=== PATIENT | male | born 1950 | race Caucasian/White ===

== ENCOUNTER 2024-01-19 11:40 | Inpatient (IN) | payer MEDICARE, SELFPAY ==
--- NOTE | ~2024-01-19 | US_ITS ---
EXAMINATION: RIGHT LOWER EXTREMITY ARTERIAL DUPLEX CLINICAL INFORMATION: Right lower extremity numbness and pain COMPARISON: None available. TECHNIQUE: Duplex Doppler techniques with waveform analysis and measurement of velocities in the common femoral, profunda femoris, superficial femoral, popliteal and tibial arteries were performed. The study was performed only at rest. FINDINGS: NONINVASIVE ASSESSMENT OF THE ARTERIES OF BILATERAL LOWER EXTREMITIES WITH ABIs: RIGHT LOWER EXTREMITY DUPLEX ULTRASOUND: Common femoral artery: 94.4 cm/s. Diastolic flow reversal: Present Profunda femoris artery: 51 cm/s. Diastolic flow reversal: Present Superficial femoral artery (proximal): 125 cm/s. Diastolic flow reversal: Present Superficial femoral artery (mid): 83.9 cm/s. Diastolic flow reversal: Present Superficial femoral artery (distal): 66.5 cm/s. Diastolic flow reversal: Present Proximal popliteal artery: 40.8 cm/s Diastolic flow reversal: Present Distal popliteal artery: 50.6 cm/s Diastolic flow reversal: Present Posterior tibial artery: 74.2 cm/s Diastolic flow reversal: Present Peroneal artery: 36.4 cm/s Diastolic flow reversal: Present US/US arterial duplex LE RT IMPRESSION: Normal multiphasic flow throughout the right lower extremity. No sonographic evidence of right lower extremity arterial disease.
--- NOTE | ~2024-01-19 | XR_ITS ---
EXAMINATION: XR KNEE, RIGHT CLINICAL INFORMATION: Pain COMPARISON: None available. TECHNIQUE: Four views of the right knee. FINDINGS: No acute visible fracture or dislocation. Multi joint arthritic changes. Joint space alignment are maintained. Trace knee joint effusion. Soft tissues are unremarkable. XR/XR knee RT 3V IMPRESSION: 1. No acute visible fracture or dislocation. 2. Multi joint arthritic changes. 3. Trace knee joint effusion.
--- NOTE | ~2024-01-19 | CT_ITS ---
EXAMINATION: CT LUMBAR SPINE WITHOUT CONTRAST CLINICAL INFORMATION: Neck pain. Severe right thigh pain. COMPARISON: None available. TECHNIQUE: Axial images obtained through the lumbar spine. Coronal and sagittal reformatted images are performed at this This CT examination was performed using dose optimization techniques as appropriate, variously including the following: *Automated exposure control *Adjustment of mA and/or kV according to patient size (this includes techniques or standardized protocols for targeted exams where dose is matched to indication/reason for exam; i.e. extremities or head) *Use of iterative reconstruction technique DLP; 386 mGy-cm FINDINGS: No paraspinal soft tissue mass or fluid collection. No focal bone lesion or bone destruction. 1 mm nonobstructive stone mid pole right kidney. No hydroureter. Vascular calcifications of aorta and iliac arteries without aneurysm. Degenerative change at the sacroiliac joints bilateral. There is bony fusion of the left anterior sacroiliac joint. Partial bony fusion of the posterior superior right sacroiliac joint. Disc levels: T12-L1: No focal disc protrusion. No central canal stenosis. Neural foramina open. Facet joints are normal. L1-L2: No focal disc protrusion. No central canal stenosis. Neural foramina open. Facet joints are normal. L2-L3: No focal disc protrusion. No central canal stenosis. Neural foramina open. Facet joints are normal. L3-L4: No focal disc protrusion. There is mild circumferential bulge of the annular fibers of the disc. Ligamentum flavum hypertrophy. Mild degenerative change of facet joints. Moderate central canal stenosis. Neural foramina are open bilaterally. L4-L5: Mild narrowing of the lumbar disc height. Slight circumferential bulge of the annular fibers. Mild ligamentum flavum hypertrophy. Mild to moderate central canal stenosis. Neural foramina remain open bilaterally. Moderate degenerative facet joint arthrosis. L5-S1: Lumbar disc height normal. No focal disc protrusion. No central canal stenosis. Neural foramina remain open. Moderate degenerative change of facet joints bilateral. CT/CT lumbar spine wo IV con IMPRESSION: 1. No acute abnormality. 2. Degenerative spondylosis of lumbar spine. Bulging of the annular fibers at L3-L4 and L4-L5. Moderate central canal stenosis at L3-L4 and mild to moderate central canal stenosis at L4-L5.
--- NOTE | ~2024-01-19 | XR_ITS ---
EXAMINATION: XR PELVIS CLINICAL INFORMATION: rt groin pain COMPARISON: None available. TECHNIQUE: AP view of the pelvis. FINDINGS: No acute fracture. The femoral heads are well seated within the acetabula bilaterally. Mild arthrosis bilaterally with joint space narrowing and subchondral sclerosis. The pelvic rim is intact. No pubic symphysis diastases. Sacroiliac joint spaces are maintained. XR/XR pelvis 1-2V IMPRESSION: 1. No acute fracture or dislocation. 2. Mild bilateral hip arthrosis.
--- NOTE | ~2024-01-19 | US_ITS ---
EXAMINATION: US SCROTUM CLINICAL INFORMATION: Scrotal pain. COMPARISON: None available. TECHNIQUE: A sonogram of the scrotum was performed assessing jackson-scale appearance and color Doppler flow. Spectral Doppler analysis of the arterial and venous flow were performed in the testes bilaterally. FINDINGS: RIGHT: Right testicle measures 4 x 2.5 x 2.7 cm, volume 13.8 mL. No focal testicular parenchymal lesions are visualized. Spectral Doppler analysis of the arterial and venous flow is normal in the right testis. Right epididymal head is normal in size. Small right-sided hydrocele. There is no right-sided varicocele. Right epididymal Doppler flow is normal. LEFT: Left testicle measures 4 x 2.3 x 2.8 cm, volume 15.4 mL. No focal testicular parenchymal lesions are visualized. Spectral Doppler analysis of the arterial and venous flow is normal in the left testis. There is heterogeneous density and mild thickening of the body and tail of the left epididymis. There is increased vascularity on color Doppler. Findings consistent with a left-sided epididymitis. Small left-sided hydrocele. There is no varicocele. US/US scrotum doppler IMPRESSION: 1. Normal right and left testicle. 2. Heterogeneous density and mild thickening of the body and tail of left epididymis with increased vascular flow on color Doppler consistent with epididymitis. 3. Small bilateral hydrocele.
--- NOTE | ~2024-01-19 | US_ITS ---
EXAMINATION: US SCROTUM CLINICAL INFORMATION: Scrotal pain. COMPARISON: None available. TECHNIQUE: A sonogram of the scrotum was performed assessing jackson-scale appearance and color Doppler flow. Spectral Doppler analysis of the arterial and venous flow were performed in the testes bilaterally. FINDINGS: RIGHT: Right testicle measures 4 x 2.5 x 2.7 cm, volume 13.8 mL. No focal testicular parenchymal lesions are visualized. Spectral Doppler analysis of the arterial and venous flow is normal in the right testis. Right epididymal head is normal in size. Small right-sided hydrocele. There is no right-sided varicocele. Right epididymal Doppler flow is normal. LEFT: Left testicle measures 4 x 2.3 x 2.8 cm, volume 15.4 mL. No focal testicular parenchymal lesions are visualized. Spectral Doppler analysis of the arterial and venous flow is normal in the left testis. There is heterogeneous density and mild thickening of the body and tail of the left epididymis. There is increased vascularity on color Doppler. Findings consistent with a left-sided epididymitis. Small left-sided hydrocele. There is no varicocele. US/US scrotum IMPRESSION: 1. Normal right and left testicle. 2. Heterogeneous density and mild thickening of the body and tail of left epididymis with increased vascular flow on color Doppler consistent with epididymitis. 3. Small bilateral hydrocele.
--- NOTE | ~2024-01-19 | XR_ITS ---
EXAMINATION: XR HIP, RIGHT CLINICAL INFORMATION: Pain COMPARISON: None available. TECHNIQUE: AP view the pelvis 2 views of the right hip FINDINGS: No acute visible fracture or dislocation. 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 Degenerative changes of the lumbosacral spine. Joint space alignment are otherwise maintained. Multilevel visualized colon. Soft tissues are unremarkable. XR/XR hip RT w PEL1V IMPRESSION: 1. No acute visible fracture or dislocation. 2. 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 3. Degenerative changes of the lumbosacral spine.
[2024-01-19 12:58] VITALS: BP 157/83; PULSE 74; O2SAT 96
[2024-01-19 13:00] VITALS: BP 173/91; PULSE 86; RESP 18; TEMP 36.6; O2SAT 96; BMI 26.9
--- NOTE | 2024-01-19 13:12 | ED_ITS ---
HPI - General Adult General Chief complaint: Extremity Injury, Lower Stated complaint: LEG PAIN PER EMS Time Seen by Provider: 01/19/24 16:46 Source: patient, family and RN notes reviewed Mode of arrival: wheelchair Limitations: no limitations History of Present Illness ED Provider: Sabrina Haro PA-C HPI narrative: This is a 73-year-old male, with a history of PLS, who presents emergency department complaints of right-sided groin pain x1 week. Patient states he has had no recent injury, however states that he chops wood from his motorized scooter. He does not remember specific move where he pulled his groin however states that he has had worsening right groin pain over the last several days. He states he is unable to extend his leg secondary to the pain. He reports that the pain radiates into his right testicle but no urinary symptoms. No fevers, chills, chest pain, shortness of breath, abdominal pain, nausea, vomiting or diarrhea. No dysuria, hematuria, urinary frequency or urgency. Denies taking any medicines at home to treat his current symptoms. No other complaints or concerns at this time. MD complaint: Right groin pain Onset (ago): week(s) Location: lower extremity Radiation: non-radiation Severity: moderate Quality: aching Pain Consistency: constant Relieving factors: none Exacerbating factors: none Associated symptoms: denies other symptoms Treatments prior to arrival: none Related Data Home Medications ?Medication ?Instructions ?Recorded ?Confirmed clopidogrel 75 mg tablet 75 mg PO DAILY 01/20/24 01/20/24 cyanocobalamin (vitamin B-12) 1,000 mcg PO DAILY 01/20/24 01/20/24 1,000 mcg tablet ezetimibe 10 mg tablet 10 mg PO DAILY 01/20/24 01/20/24 levothyroxine 150 mcg tablet 150 mcg PO MOTUWETHFRSA 01/20/24 01/20/24 metoprolol succinate 25 mg 25 mg PO DAILY 01/20/24 01/20/24 tablet,extended release 24 hr Previous Rx's ?Medication ?Instructions ?Recorded acetaminophen 325 mg tablet 975 mg (3 x 325 mg) PO TIDWM 7 01/24/24 days #63 tabs ibuprofen 400 mg tablet 400 mg PO TIDWM 7 days #21 tabs 01/24/24 levofloxacin 500 mg tablet 500 mg PO Q24H #10 tabs 01/24/24 oxycodone 5 mg tablet 5 mg PO Q6H PRN Pain, Severe (Pain 01/24/24 Scale 7-10) #20 tabs pantoprazole 20 mg tablet,delayed 20 mg PO DAILY #90 tabs 01/24/24 release Allergies Allergy/AdvReac Type Severity Reaction Status Date / Time No Known Allergies Allergy Verified 01/19/24 13:04 Review of Systems 2 Review of Systems: Yes all other systems are reviewed and are negative Constitutional: Constitutional: Reports as per [facility] Past Medical History Medical History Hypothyroidism HLD (hyperlipidemia) Social History Social History Household Members: Spouse Housing: House Do you presently have visiting nurse or other home services: No Comment: Mindy Patient Tobacco Use Status: Never used Tobacco Substance Use Type: Other service: No Physical Exam ED Vital Signs: Vital Signs - 24 hr 01/19/24 13:00 01/19/24 21:38 01/20/24 01:19 Temperature 97.9 F 98.4 F 98.3 F Pulse Rate 86 68 62 Respiratory Rate 18 20 18 Blood Pressure 173/91 H 161/84 H 135/66 Pulse Oximetry 96 93 97 Oxygen Delivery Method Room Air Room Air Room Air 01/20/24 03:48 01/20/24 04:00 01/20/24 05:55 Temperature 98.3 F 97.7 F 98.3 F Pulse Rate 62 61 61 Respiratory Rate 18 16 16 Blood Pressure 135/66 120/72 115/59 L Pulse Oximetry 97 97 Oxygen Delivery Method Room Air Room Air BMI result Body Mass Index 26.9 Const General: cooperative, comfortable and no acute distress Orientation/consciousness: patient oriented x3 Limitations: no limitations [facility] Head: Yes normal to inspection, Yes normocephalic and Yes atraumatic Ears: hearing grossly normal bilaterally General nose exam: Normal external nose present Face and sinus: Yes normal facial exam Mouth: Normal oral and palatal mucosa present, oropharynx normal and moist mucous membranes Throat: Yes posterior oropharynx normal Eyes General: appearance normal, both eyes and all related structures Eyelids: Yes eyelids normal Conjunctivae: conjunctivae normal Sclerae: sclerae normal Pupils: Equal, round and reactive pupils present EOM: EOMs intact bilaterally Neck Neck: Yes normal visual inspection, Yes full ROM and Yes no lymphadenopathy Lymphatic: no lymphadenopathy noted Chest Chest palpation & inspection: normal inspection of the chest Resp Effort & Inspection: normal respiratory effort and able to speak in complete sentences Auscultation: clear to auscultation bilaterally, no crackles, no rales, no rhonchi and no wheezes Cardio Rate: regular rate Rhythm: regular rhythm Heart sounds: S1 normal heart sound present and S2 normal heart sound present GI Inspection: Yes normal to inspection Other: examination performed with RN, Brian Pang present. No testicular erythema, edema, or tenderness. No masses. Skin General skin exam: no rashes or lesions noted Trauma: no lacerations or abrasions Wounds: no wounds Neuro General: patient oriented x3 and moves all extremities Cranial nerves: Yes Equal, round and reactive pupils present Extrem Other: Right lower extremity, no tenderness to palpation along the inner thigh. No palpable masses. No overlying skin changes. Pain with extension of the leg red no calf tenderness. Strong DP pulse noted bilaterally. Extremities are well perfused. General: Yes normal to inspection Right upper extremity: normal to inspection Left upper extremity: normal to inspection Right lower extremity: normal to inspection Left lower extremity: normal to inspection Course Course Course Narrative: This is an RME done by BASSEM Zhu: Additional HPI, ROS, PE not included below will be deferred to primary provider. 73 yo m hx of cad, MIS s/p stents presents w/ R sided groin pain and b/l testicular pain x 1 week. Pain in right groin travels town to right knee. Feels a spasming sensation that comes and goes and is very uncomfortable. No numbness or tingling. No injury. No changes in bowel habits or urination. Not on thinners PE- patient appears uncomfortable TTP to r groin. Unable to walk due to pain Reevaluation(s) Reevaluation #1: Sign out given to my colleague, Cristino Sears, pending CPK, mag, ct lumbar spine, xray hip, knee, and re-eval Reevaluation #2: CP not consistent with rhabdomyolysis. Magnesium within normal range. CT of the lumbar spine revealing degenerative spondylosis and moderate central stenosis as per impression below. Patient is updated on these findings. Reports a history of intermittent urinary incontinence over the past 3-4 years. He denies any rinsed since incontinence over the past month. Having normal bowel movements. He is without urinary symptoms, no dysuria, hematuria, or inability to urinate. Scrotal ultrasound does have findings revealing a left epididymitis and small bilateral hydroceles, urinalysis is without evidence of infection, patient received Levaquin 500 mg treatment. Concern at this time that pain to the right leg and groin is radiculopathy versus muscular pain. He had some in improvement in the muscle tension to the right thigh after receiving Valium, being able to relax the leg. However, his pain is unchanged and continues to report 10/10 pain. He is hesitant to taking IV pain medications as he has been sensitive to narcotics in the past. He is amenable to taking oral oxycodone. He states at baseline he is typically highly functional with use of wheelchair/motorized scooter, but he is also typically ambulatory in his home with use of a walker but has been unable to walk over the past 2 days due to his pain. CT/CT lumbar spine wo IV con IMPRESSION: 1. No acute abnormality. 2. Degenerative spondylosis of lumbar spine. Bulging of the annular fibers at L3-L4 and L4-L5. Moderate central canal stenosis at L3-L4 and mild to moderate central canal stenosis at L4-L5. XR/XR knee RT 3V IMPRESSION: 1. No acute visible fracture or dislocation. 2. Multi joint arthritic changes. 3. Trace knee joint effusion. US/US scrotum IMPRESSION: 1. Normal right and left testicle. 2. Heterogeneous density and mild thickening of the body and tail of left epididymis with increased vascular flow on color Doppler consistent with epididymitis. 3. Small bilateral hydrocele. Reevaluation #3: After receiving oxycodone he reports only mild improvement to pain 9/10. Reports he is unable to move on the stretcher due to his pain, does not feel well enough to return home. Discussed with patient he will need to consider IV analgesics at this time, pain for further management. Patient signed out to Dr. Villarreal pending pain management and re-evaluation. Time: 01:30 Medications Administered Discontinued Medications Generic Name Dose Route Start Last Admin Trade Name Mellisa PRN Reason Stop Dose Admin Acetaminophen 975 mg 01/20/24 12:00 01/24/24 11:42 Acetaminophen 325 Mg Tablet PO 975 mg TIDWM BRENDA Administration Cyclobenzaprine HCl 5 mg 01/20/24 11:30 01/24/24 07:19 Cyclobenzaprine Hcl 5 Mg Tablet PO 5 mg TID BRENDA Administration Diazepam 2.5 mg 01/19/24 19:08 01/19/24 19:40 Diazepam 10 Mg/2 Ml Cartridge IVPUSH 01/19/24 19:09 2.5 mg STAT ONE Administration Enoxaparin Sodium 40 mg 01/20/24 09:45 01/24/24 10:35 Enoxaparin Sodium 40 Mg/0.4 Ml Syringe SUBCUT Not Given Q24H BRENDA Hydromorphone HCl 0.5 mg 01/20/24 06:06 01/20/24 06:36 Hydromorphone Hcl 0.5 Mg/0.5 Ml Syringe IVPUSH 01/20/24 06:07 0.5 mg ONCE ONE Administration Protocol Levofloxacin 500 mg in 100 mls @ 100 mls/hr 01/20/24 22:45 01/22/24 00:57 Levaquin IV Infused Q24H [facility] Infusion Ibuprofen 400 mg 01/20/24 12:00 01/24/24 11:42 Ibuprofen 400 Mg Tablet PO 400 mg TIDWM [facility] Administration Ketorolac Tromethamine 15 mg 01/20/24 09:43 01/20/24 10:23 Ketorolac Tromethamine 30 Mg/Ml Vial IVPUSH 01/20/24 09:44 15 mg ONCE ONE Administration Lactulose 20 gm 01/22/24 09:15 01/24/24 07:20 Lactulose 20 Gm/30 Ml Solution PO Not Given TID BRENDA Levofloxacin 500 mg 01/20/24 01:46 01/20/24 02:29 Levofloxacin 500 Mg Tablet PO 01/20/24 01:47 500 mg ONCE ONE Administration Levofloxacin 500 mg 01/22/24 21:00 01/23/24 19:45 Levofloxacin 500 Mg Tablet PO 500 mg Q24H BRENDA Administration Levothyroxine Sodium 150 mcg 01/24/24 09:58 01/24/24 10:26 Levothyroxine Sodium 150 Mcg Tablet PO 01/24/24 09:59 150 mcg ONCE ONE Administration Morphine Sulfate 4 mg 01/20/24 01:42 01/20/24 02:29 Morphine Sulfate 4 Mg/Ml Cartridge IVPUSH 01/20/24 01:43 4 mg ONCE ONE Administration Protocol Morphine Sulfate 2 mg 01/20/24 09:46 01/21/24 05:57 Morphine Sulfate 4 Mg/Ml Cartridge IVPUSH 2 mg Q4H PRN Administration Pain, Severe (Pain Scale 7-10) Protocol Ondansetron HCl 4 mg 01/20/24 01:42 01/20/24 02:29 Ondansetron Hcl 4 Mg/2 Ml Vial IVPUSH 01/20/24 01:43 4 mg ONCE ONE Administration Oxycodone HCl 5 mg 01/19/24 23:12 01/20/24 00:00 Oxycodone Hcl Immed Release 5 Mg Tablet PO 01/19/24 23:13 5 mg ONCE ONE Administration Oxycodone HCl 5 mg 01/23/24 08:05 01/23/24 13:57 Oxycodone Hcl Immed Release 5 Mg Tablet PO 5 mg Q6H PRN Administration Pain, Severe (Pain Scale 7-10) Sodium Chloride 3 ml 01/20/24 16:00 01/24/24 07:19 0.9 % Sodium Chloride Flush 3 Ml Syringe IVFLUSH 3 ml QSHIFT BRENDA Administration Medical Decision Making Medical Decision Making [facility] Narrative: This is a 73-year-old male, with a history of PLS, who presents to the emergency department with complaints of right inner leg pain and spasmx1 week worsening today. On arrival, patient with right legs secondary to spasm, blood pressure 173/91 other vitals within normal limits patient has no tenderness palpation however pain with extend of the right leg. Leg is well perfused. examination performed without any abnormalities present. Labs were obtained, no leukocytosis, stable H&H, chemistry nondiagnostic. Scrotal ultrasound and lower extremity arterial ultrasound also obtained, no abnormality seen however is evidence of epididymitis seen. I believe that is less likely and not the source of his pain. Discussed workup with attending, Dr. Jung, who recommends lumbar spine CT, knee x-ray, and hip x-ray. Will medicate with Valium 2.5 mg IV. At 06:00. Patient continued to have pain despite IV pain medication. Additional Dilaudid ordered. Patient had extensive worked up, multiple dose of medication. Been monitored in the emergency department for multiple hours. Will admit for pain control. In stable condition. Differential Diagnosis Differential Diagnoses: The differential diagnosis associated with the presentation includes PVD, ischemic limb-unlikely, to light derangement, sciatica, muscle spasm, Admission/Observation Consideration of admission/observation: Escalation of care including admission/observation considered Lab Data MDM Lab Attestation statement: I reviewed the patient's lab results. No leukocytosis, stable H&H, chemistry nondiagnostic 01/19/24 13:28 01/21/24 05:45 Labs: Lab Results 01/19/24 01/19/24 01/21/24 Range/Units 13:28 21:57 05:45 WBC 8.7 (4.8-10.8) X10*3/uL RBC 5.21 (4.60-5.80) X10*6/uL Hgb 16.4 (14.0-18.0) g/dl Hct 49.8 (42.0-52.0) % MCV 95.6 (80.0-98.0) fL MCH 31.5 (27.0-33.0) pg MCHC 32.9 (31.0-36.0) g/dl RDW 13.3 (11.0-16.0) % Plt Count 212 (160-400) X10*3/uL MPV 10.7 (9.4-12.4) fL Immature Gran % (Auto) 0.5 H (0.0-0.4) % Neut % (Auto) 78.0 H (45-73) % Lymph % (Auto) 15.2 L (20-40) % [place] % (Auto) 5.4 (2-11) % Eos % (Auto) 0.6 (0-4) % Baso % (Auto) 0.3 (0-2) % Lymph # (Auto) 1.3 (1.2-4.9) X10*3/uL [place] # (Auto) 0.5 (0.1-1.2) X10*3/uL Eos # (Auto) 0.1 (0.0-0.4) X10*3/uL Baso # (Auto) 0.0 (0.0-0.2) X10*3/uL Abs Immat Gran (auto) 0.04 H (0.00-0.03) X10*3/uL Absolute Neuts (auto) 6.8 (2.0-8.3) x10*3/uL Absolute Nucleated RBC 0.000 (0.0-0.012) X10*3/uL Nucleated RBC % (auto) 0.0 (0.0-0.2) /100WBC Hold Purple Top SEE NOTE PT 11.3 (11.1-13.3) SEC INR 0.9 (0.9-1.1) Sodium 142 141 (135-145) mmol/L Potassium 4.3 4.2 (3.3-5.1) mmol/L Chloride 109 H 109 H (96-108) mmol/L Carbon Dioxide 24 25 (22-29) mmol/L Anion Gap 13 11 L (12-20) BUN 14 16 (9-16) mg/dL Creatinine 1.08 1.11 (0.5-1.4) mg/dL Estim Creat Clear Calc 62.7 61.0 Estimated GFR > 60 > 60 Random Glucose 100 87 (60-115) mg/dL Calcium 9.5 9.1 (8.4-10.2) mg/dL Magnesium 2.1 (1.6-2.6) mg/dL Total Bilirubin 0.6 (0.0-1.0) mg/dL AST 17 (5-37) U/L ALT 17 (0-40) U/L Alkaline Phosphatase 68 (39-117) U/L Total Creatine Kinase 191 H (38-174) U/L Total Protein 7.4 (6.5-8.0) g/dL Albumin 4.4 (3.5-5.0) g/dL Urine Color Dark Yellow Urine Appearance Clear Urine pH 5.0 (5.0-9.0) Ur Specific [place] >= 1.030 H (1.005-1.025) Urine Protein Negative (Neg-Trace) mg/dL Urine Glucose (UA) Negative (Negative) mg/dL Urine Ketones Negative (Negative) mg/dL Urine Blood Negative (Negative) Urine Nitrite Negative (Negative) Ur Leukocyte Esterase Trace H (Negative) Urine RBC 0-2 (0-2) /HPF Urine WBC 6-10 H (0-5) /HPF Ur Squamous Epith Cells 0-2 (0-2) /HPF Urine Bacteria None Seen (None Seen) Hyaline Casts 0-2 (0-2) /LPF Radiology Impression Discussion of test interpretation with radiology: I have reviewed the radiologist's reading. Radiologist Impression: EXAMINATION: US SCROTUM CLINICAL INFORMATION: Scrotal pain. COMPARISON: None available. TECHNIQUE: A sonogram of the scrotum was performed assessing jackson-scale appearance and color Doppler flow. Spectral Doppler analysis of the arterial and venous flow were performed in the testes bilaterally. FINDINGS: RIGHT: Right testicle measures 4 x 2.5 x 2.7 cm, volume 13.8 mL. No focal testicular parenchymal lesions are visualized. Spectral Doppler analysis of the arterial and venous flow is normal in the right testis. Right epididymal head is normal in size. Small right-sided hydrocele. There is no right-sided varicocele. Right epididymal Doppler flow is normal. LEFT: Left testicle measures 4 x 2.3 x 2.8 cm, volume 15.4 mL. No focal testicular parenchymal lesions are visualized. Spectral Doppler analysis of the arterial and venous flow is normal in the left testis. There is heterogeneous density and mild thickening of the body and tail of the left epididymis. There is increased vascularity on color Doppler. Findings consistent with a left-sided epididymitis. Small left-sided hydrocele. There is no varicocele. US/US scrotum doppler IMPRESSION: 1. Normal right and left testicle. 2. Heterogeneous density and mild thickening of the body and tail of left epididymis with increased vascular flow on color Doppler consistent with epididymitis. 3. Small bilateral hydrocele. Dictated By: Harley Dong MD US/US arterial duplex LE RT IMPRESSION: Normal multiphasic flow throughout the right lower extremity. No sonographic evidence of right lower extremity arterial disease. Dictated By: Jerome Steven MD Discharge Plan Discharge Clinical Impression: Leg pain, right Patient Disposition: Admitted As Inpatient Interventions: Admission Worksheet (ED) Last Done: 01/20/24 15:28 Discharge Date/Time: 01/20/24 16:52
[2024-01-19 13:32] LABS: MANUAL DIFF FLAG NO
[2024-01-19 13:33] LABS: Basophils Percent Auto 0.3 % (0-2); Eosinophils Absolute Auto 0.1 X10*3/uL (0.0-0.4); Eosinophils Percent Auto 0.6 % (0-4); Hematocrit 49.8 % (42.0-52.0); Hemoglobin 16.4 g/dl (14.0-18.0); Imm Gran Abs Auto 0.04 X10*3/uL (0.00-0.03); Imm Gran Pct Auto 0.5 % (0.0-0.4); Lymphocytes Absolute Auto 1.3 X10*3/uL (1.2-4.9); Lymphocytes Percent Auto 15.2 % (20-40); Mean Corpuscular HGB Conc 32.9 g/dl (31.0-36.0); Mean Corpuscular Hemoglobin 31.5 pg (27.0-33.0); Mean Corpuscular Volume 95.6 fL (80.0-98.0); Mean Platelet Volume 10.7 fL (9.4-12.4); Monocytes Absolute Auto 0.5 X10*3/uL (0.1-1.2); Monocytes Percent Auto 5.4 % (2-11); Neutrophils Absolute Auto 6.8 x10*3/uL (2.0-8.3); Platelet Count 212 X10*3/uL (160-400); Red Blood Count 5.21 X10*6/uL (4.60-5.80); Red Cell Distribution Width 13.3 % (11.0-16.0); White Blood Count 8.7 X10*3/uL (4.8-10.8)
[2024-01-19 13:41] LABS: INTERNATIONAL NORM RATIO 0.9 (0.9-1.1); Prothrombin Time 11.3 SEC (11.1-13.3)
[2024-01-19 13:47] LABS: Alanine Aminotransferase 17 U/L (0-40); Albumin Level 4.4 g/dL (3.5-5.0); Alkaline Phosphatase 68 U/L (39-117); Anion Gap 13 (12-20); Aspartate Amino Transferase 17 U/L (5-37); Bilirubin Total 0.6 mg/dL (0.0-1.0); Blood Urea Nitrogen 14 mg/dL (9-16); Calcium 9.5 mg/dL (8.4-10.2); Carbon Dioxide 24 mmol/L (22-29); Chloride 109 mmol/L (96-108); Creatinine Clr Calc Pharmacy 62.7; Estimated Glomerular Filt Rate > 60; Glucose Random 100 mg/dL (60-115); Potassium 4.3 mmol/L (3.3-5.1); Sodium 142 mmol/L (135-145); Total Protein 7.4 g/dL (6.5-8.0)
--- OUTSIDE RECORDS SUMMARY | 2024-01-19 16:39 | XMS_ITS | Patient Health Record ---
Author Organization [facility] Address [address] [place] [address] Care Team Providers Care Sulky Driver Name Role Phone Ulises Cedeño MD Primary Care Provider Unavail able Obi Barboza Unavailable [phone] REASON FOR REFERRAL No Information MEDICATIONS Medication SIG (Take, Route, Fr equency, Duration) Notes Start Date End Date Status MoviPrep 100 GM as directed Orally 1 for 1 dose Active Aspir-81 81mg Active Thyroid 0.15 08/22/2023 08/22/2023 Activ e Lopressor 25mg 08/22/2023 08/22/2023 Act marsha SOCIAL HISTORY Sex Assigned At : Social History Observation Description Sex Assigned At Unknown PROBLEMS Problem Type ICD Code Onset Dates Problem Status W/U Status Risk SNOMED Code Notes Problem Acid reflux (530.81) Active confirmed Acid reflux (332866504) Problem Colon cancer screening (V76.51) Active confirmed Colon cancer screening (742174587) PLAN OF TREATMENT Future Test Test Name Order Date COLONOSCOPY 03/02/2012 Insurance Providers Payer Name Payer Address Payer Phone Subscriber Number Group Number Insured Name Patient Relationship to Insured Coverage Start Date [place]age End [place] [facility] [place] [employer] [address] [place] [address] [id number] MAGGIE MCADAMS Self - patient is the insured MEDICAL (GENERAL) HISTORY Medical History History ICD Code Denies [place],DM,CVA,Lung disease,renal dise ase CAD-stent in 2002-no cardiac problems si nce ? 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
[2024-01-19] MEDS: diazePAM 10 MG/2 ML CARTRIDGE 2.5 MG IVPUSH (19:40)
[2024-01-19 19:42] LABS: Magnesium 2.1 mg/dL (1.6-2.6)
[2024-01-19 21:38] VITALS: BP 161/84; PULSE 68; RESP 20; TEMP 36.9; O2SAT 93
[2024-01-19 22:22] LABS: Appearance Urine Clear; Color Urine Dark Yellow; Glucose Urine UA Negative (Negative); Leukocyte Esterase Urine Trace (Negative); Nitrite Urine Negative (Negative); Specific Gravity - Urine >= 1.030 (1.005-1.025); UMIC TRIGGER UACC YES; Urine Blood Negative (Negative); Urine Ketones Negative (Negative); Urine Protein Negative (Neg-Trace)
[2024-01-19 22:32] LABS: Bacteria Urine None Seen (None Seen); Hyaline Casts Urine 0-2 /LPF (0-2); RBC Urine 0-2 /HPF (0-2); Squamous Epithelial Cell Urine 0-2 /HPF (0-2); UACC Culture Trigger YES
[2024-01-20] VITALS (10 sets, daily range): BP systolic 109–155; BP diastolic 59–86; PULSE 61–78; RESP 14–19; TEMP 36.3–36.8; O2SAT 92–97
[2024-01-20] MEDS: oxyCODONE HCl Immed Release 5 MG TABLET PO
[2024-01-20] MEDS: ondansetron HCL 4 MG/2 ML VIAL IVPUSH (02:29)
[2024-01-20] MEDS: Morphine Sulfate 4 MG/ML CARTRIDGE IVPUSH (02:29)
[2024-01-20] MEDS: levoFLOXacin 500 MG TABLET PO (02:29)
[2024-01-20] MEDS: HYDROmorphone HCl 0.5 MG/0.5 ML SYRINGE IVPUSH (06:36)
--- NOTE | 2024-01-20 08:19 | PC.NURSE ---
Pt states pain 2/10 to dorsal right foot. Area appears red, no warmth noted to area. +CMS. No reports of groin or testicular pain at this time. Pt is alert/oriented. Awaiting hospitalist for consult for ?admission. Visitor at bedside
--- NOTE | 2024-01-20 09:47 | P.HPHOSP_ITS ---
History of Present Illness Date of Service: 01/20/24 Chief Complaint: intractable pain, UTI, Epididimytis A 73 years old male with PMH of Hypothyroid, HLD, HTN who presents to ED with 1 week of right sided groin and thigh pain. He denies fever, chills, injury. He reports last week that he chopped wood by the motorized scooter with lots of vibration. the pain is persistent and getting worse interfering with his daily activities as he can not walk safely anymore. The pain radiates to his testicles but no pain or swelling in his scrotum. . No chest pain, palpitations, SOB, nausea, vomiting, diarrhea or urinary symptoms. In ED US scrotum was concerning for possible left sided Epididymitis. received multiple doses of IV and PO pain medications with no relief. Will be admitted for further work up and treatment. Review of Systems 2 Review of Systems: No fever, chills or weakness No chest pain, palpitation No shortness of breath or coughing No abdominal pain, nausea or vomiting No urinary symptoms No any rash or wounds Right inner thigh pain PMFSH Medical History Hypothyroidism HLD (hyperlipidemia) Social History Smoked in Last 30 Days: No Advance Directives: No Advance Directives Information Provided: Yes Do you have a plan to hurt others: No Plan Meds Allergies Allergy/AdvReac Type Severity Reaction Status Date / Time No Known Allergies Allergy Verified 01/19/24 13:04 Active Medications: Current Medications Acetaminophen (Acetaminophen 325 Mg Tablet) 975 mg PO TIDWM [facility] Levofloxacin (Levaquin) 500 mg in 100 mls @ 100 mls/hr IV Q24H [facility] Ibuprofen (Ibuprofen 400 Mg Tablet) 400 mg PO TIDWM [facility] Ketorolac Tromethamine (Ketorolac Tromethamine 30 Mg/Ml Vial) 15 mg IVPUSH ONCE ONE Stop: 01/20/24 09:44 Home Medications ?Medication ?Instructions ?Recorded ?Confirmed ?Last Taken ?Type clopidogrel 75 mg tablet 75 mg PO DAILY 01/20/24 01/20/24 01/17/24 History cyanocobalamin (vitamin B-12) 1,000 mcg PO DAILY 01/20/24 01/20/24 01/17/24 History 1,000 mcg tablet ezetimibe 10 mg tablet 10 mg PO DAILY 01/20/24 01/20/24 01/17/24 History levothyroxine 150 mcg tablet 150 mcg PO MOTUWETHFRSA 01/20/24 01/20/24 01/17/24 History metoprolol succinate 25 mg 25 mg PO DAILY 01/20/24 01/20/24 01/17/24 History tablet,extended release 24 hr Physical Exam 2 Vital Signs and Narrative: Vital Signs: Last Vital Signs Temp 97.4 F 01/20/24 07:28 Pulse 74 01/20/24 07:28 Resp 14 01/20/24 07:28 BP 109/60 01/20/24 07:28 Pulse Ox 92 01/20/24 07:28 O2 Del Method Room Air 01/20/24 07:28 BMI result Body Mass Index 26.9 Const: Other: Constitutional : Awake, interactive, in distress for pain Cardiovascular : RRR, no JVP, no lower extremity edema Respiratory : good bilateral air entry, no crackles Gastrointestinal: soft, lax, Normal bowel sounds Skin : Warm, Dry Extremities: Right inner thigh mild tenderness Urinary: No erythema, warmth, swelling or tenderness upon palpation Neurological : Alert & oriented x3, No focal deficit Results Labs 01/19/24 13:28 01/19/24 13:28 Labs: Laboratory Results - last 24 hr 01/19/24 01/19/24 13:28 21:57 MCV 95.6 MCH 31.5 MCHC 32.9 RDW 13.3 Plt Count 212 MPV 10.7 Immature Gran % (Auto) 0.5 H Neut % (Auto) 78.0 H Lymph % (Auto) 15.2 L Sherman % (Auto) 5.4 Eos % (Auto) 0.6 Baso % (Auto) 0.3 Lymph # (Auto) 1.3 Sherman # (Auto) 0.5 Eos # (Auto) 0.1 Baso # (Auto) 0.0 Abs Immat Gran (auto) 0.04 H Absolute Neuts (auto) 6.8 Absolute Nucleated RBC 0.000 Nucleated RBC % (auto) 0.0 PT 11.3 INR 0.9 Anion Gap 13 Estim Creat Clear Calc 62.7 Estimated GFR > 60 Random Glucose 100 Calcium 9.5 Magnesium 2.1 Total Bilirubin 0.6 AST 17 ALT 17 Alkaline Phosphatase 68 Total Creatine Kinase 191 H Total Protein 7.4 Albumin 4.4 Urine Color Dark Yellow Urine Appearance Clear Urine pH 5.0 Ur Specific Chloride >= 1.030 H Urine Protein Negative Urine Glucose (UA) Negative Urine Ketones Negative Urine Blood Negative Urine Nitrite Negative Ur Leukocyte Esterase Trace H Urine RBC 0-2 Urine WBC 6-10 H Ur Squamous Epith Cells 0-2 Urine Bacteria None Seen Hyaline Casts 0-2 Imaging Radiologist's Impressions: Impressions Duplex Scan Lower Extremity Artery 01/19/24 14:11 IMPRESSION: Normal multiphasic flow throughout the right lower extremity. No sonographic evidence of right lower extremity arterial disease. Scrotum Ultrasound 01/19/24 14:24 IMPRESSION: 1. Normal right and left testicle. 2. Heterogeneous density and mild thickening of the body and tail of left epididymis with increased vascular flow on color Doppler consistent with epididymitis. 3. Small bilateral hydrocele. Scrotum Ultrasound 01/19/24 14:24 IMPRESSION: 1. Normal right and left testicle. 2. Heterogeneous density and mild thickening of the body and tail of left epididymis with increased vascular flow on color Doppler consistent with epididymitis. 3. Small bilateral hydrocele. Lumbar Spine CT 01/19/24 18:03 IMPRESSION: 1. No acute abnormality. 2. Degenerative spondylosis of lumbar spine. Bulging of the annular fibers at L3-L4 and L4-L5. Moderate central canal stenosis at L3-L4 and mild to moderate central canal stenosis at L4-L5. Hip/Pelvis X-Ray 01/19/24 18:20 IMPRESSION: 1. No acute visible fracture or dislocation. 2. 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 3. Degenerative changes of the lumbosacral spine. Knee X-Ray 01/19/24 18:20 IMPRESSION: 1. No acute visible fracture or dislocation. 2. Multi joint arthritic changes. 3. Trace knee joint effusion. Assessment and Plan (1) HLD (hyperlipidemia): Status: Inactive (2) Hypothyroidism: Status: Inactive Plan A 73 years old male with PMH of Hypothyroid, HLD, HTN who presents to ED with 1 week of right sided groin and thigh pain. He denies fever, chills, injury. Acute left thigh\groin pain could be referred pain from testicles , hip joint US scrotum showing epididymitis Treated with IV Levaquin for now ATC Tylenol and Ibuprofen To do PT consider neurology eval if progressive Pending cultures Hx CAD? Plavix, Metoprolol and Ezetimibe Hypothyroidism continue Levothyroxine DVT PPx Lovenox Quality Stroke Does the patient have a stroke diagnosis?: No VTE Prior VTE?: No VTE Risk Level:: Medical - moderate - high VTE Device Contraindication: Treatment Not Indicated VTE Drug Contraindication: N/A - Med Ordered
--- NOTE | 2024-01-20 09:49 | PHA.MEDREC ---
Pharmacy Consult ? Medication Reconciliation Pharmacy has completed the medication reconciliation. spoke with patient to confirm medications. He reports he skips sundays for this levothyroxine. He reports he last took all of his medications on Tuesday.
[2024-01-20] MEDS: Ketorolac Tromethamine 30 MG/ML VIAL 15 MG IVPUSH (10:23)
[2024-01-20] MEDS: Enoxaparin Sodium 40 MG/0.4 ML SYRINGE SUBCUT (10:24)
--- NOTE | 2024-01-20 10:28 | PC.NURSE ---
Physical therapy at bedside at this time, will be moved on hospital bed. Update provided to daughter Medicated as charted
[2024-01-20] MEDS: Ibuprofen 400 MG TABLET PO ×2 (11:46→16:40)
[2024-01-20] MEDS: Cyclobenzaprine HCl 5 MG TABLET PO ×3 (11:46→20:09)
[2024-01-20] MEDS: Acetaminophen 325 MG TABLET 975 MG PO ×2 (11:47→16:39)
[2024-01-20] MEDS: 0.9 % Sodium Chloride Flush 3 ML SYRINGE IVFLUSH (15:25)
[2024-01-20] MEDS: Morphine Sulfate 4 MG/ML CARTRIDGE 2 MG IVPUSH (20:13)
[2024-01-21] VITALS: BP 130/87; PULSE 74; RESP 15; TEMP 36.6; O2SAT 97
[2024-01-21] MEDS: levoFLOXacin/D5W 500 MG/100 ML PIGGYBACK 100 MG IV ×2 (00:11→22:54)
[2024-01-21] MEDS: Morphine Sulfate 4 MG/ML CARTRIDGE 2 MG IVPUSH ×2 (00:16→05:57)
[2024-01-21 06:16] VITALS: BP 132/88; PULSE 72; RESP 17; TEMP 36.6; O2SAT 95
[2024-01-21 07:29] LABS: Anion Gap 11 (12-20); Blood Urea Nitrogen 16 mg/dL (9-16); Calcium 9.1 mg/dL (8.4-10.2); Carbon Dioxide 25 mmol/L (22-29); Chloride 109 mmol/L (96-108); Estimated Glomerular Filt Rate > 60; Glucose Random 87 mg/dL (60-115); Potassium 4.2 mmol/L (3.3-5.1); Sodium 141 mmol/L (135-145)
[2024-01-21] MEDS: 0.9 % Sodium Chloride Flush 3 ML SYRINGE IVFLUSH ×3 (07:35→22:54)
[2024-01-21] MEDS: Cyclobenzaprine HCl 5 MG TABLET PO ×3 (07:37→20:31)
[2024-01-21] MEDS: Ibuprofen 400 MG TABLET PO ×3 (07:38→17:29)
[2024-01-21] MEDS: Acetaminophen 325 MG TABLET 975 MG PO ×3 (07:38→17:30)
[2024-01-21] MEDS: Enoxaparin Sodium 40 MG/0.4 ML SYRINGE SUBCUT (07:39)
[2024-01-21 07:42] VITALS: BP 139/79; PULSE 68; RESP 18; TEMP 36.1; O2SAT 96
--- NOTE | 2024-01-21 10:35 | HO.PM.IMPN ---
Subjective Subjective Date of Service: 01/21/24 Interval History: feels much better already still reporting pain in groin and mid thigh pending cultures and PT eval Review of Systems Review of Systems: Yes all other systems are reviewed and are negative Physical Exam Vital Signs: Vital Signs: Last Vital Signs Temp 96.9 F 01/21/24 07:42 Pulse 68 01/21/24 07:42 Resp 18 01/21/24 07:42 BP 139/79 01/21/24 07:42 Pulse Ox 96 01/21/24 07:42 O2 Del Method Room Air 01/21/24 07:42 BMI result Body Mass Index 26.9 Const: Other: Constitutional : Awake, interactive, in distress for pain Cardiovascular : RRR, no JVP, no lower extremity edema Respiratory : good bilateral air entry, no crackles Gastrointestinal: soft, lax, Normal bowel sounds Skin : Warm, Dry Extremities: Right inner thigh mild tenderness Urinary: No erythema, warmth, swelling or tenderness upon palpation Neurological : Alert & oriented x3, No focal deficit Objective Data Active Medications Acetaminophen (Acetaminophen 325 Mg Tablet) 975 mg PO TIDWM [facility] Last Admin: 01/21/24 07:38 Dose: 975 mg Documented By: WILLIAM Acetaminophen (Acetaminophen 325 Mg Tablet) 650 mg PO Q6H PRN PRN Reason: Pain, Mild (Pain Scale 1-3) Al Hydroxide/Mg Hydroxide (Magnesium Hydrox/Alum Hydrox 30 Ml Oral.Susp) 30 ml PO Q4H PRN PRN Reason: Heartburn/Nausea Cyclobenzaprine HCl (Cyclobenzaprine Hcl 5 Mg Tablet) 5 mg PO TID [facility] Last Admin: 01/21/24 07:37 Dose: 5 mg Documented By: WILLIAM Enoxaparin Sodium (Enoxaparin Sodium 40 Mg/0.4 Ml Syringe) 40 mg SUBCUT Q24H [facility] Last Admin: 01/21/24 07:39 Dose: 40 mg Documented By: WILLIAM Levofloxacin (Levaquin) 500 mg in 100 mls @ 100 mls/hr IV Q24H [facility] Last Infusion: 01/21/24 01:17 Dose: Infused Documented By: KIRT Ibuprofen (Ibuprofen 400 Mg Tablet) 400 mg PO TIDWM [facility] Last Admin: 01/21/24 07:38 Dose: 400 mg Documented By: WILLIAM Morphine Sulfate (Morphine Sulfate 4 Mg/Ml Cartridge) 2 mg IVPUSH Q4H PRN; Protocol PRN Reason: Pain, Severe (Pain Scale 7-10) Last Admin: 01/21/24 05:57 Dose: 2 mg Documented By: KIRT Ondansetron HCl (Ondansetron Hcl 4 Mg/2 Ml Vial) 4 mg IVPUSH Q8H PRN PRN Reason: Nausea and Vomiting Sodium Chloride (0.9 % Sodium Chloride Flush 3 Ml Syringe) 3 ml IVFLUSH QSHIFT [facility] Last Admin: 01/21/24 07:35 Dose: 3 ml Documented By: WILLIAM Labs 01/19/24 13:28 01/21/24 05:45 Labs: Laboratory Results - last 24 hr 01/21/24 05:45 Hold Purple Top SEE NOTE Anion Gap 11 L Estim Creat Clear Calc 61.0 Estimated GFR > 60 Random Glucose 87 Calcium 9.1 Microbiology Microbiology Results: Microbiology 01/19/24 Unknown Urine Culture - Preliminary Urine clean catch - Urine jackson top No growth to date. Assessment and Plan (1) Epididymitis, left: Status: Acute (2) Leg pain, right: Status: Acute (3) Physical deconditioning: Status: Acute Plan A 73 years old male with PMH of Hypothyroid, HLD, HTN who presents to ED with 1 week of right sided groin and thigh pain. He denies fever, chills, injury. Acute left thigh\groin pain 2/2 acute Epididymitis could be referred pain from testicles , hip joint osteoarthritis US scrotum showing epididymitis Pending cultures IV Levaquin for now ATC Tylenol and Ibuprofen Morphine PRN for pain Physical deconditioning PT rec acute rehab, to continue to follow. Hx CAD? Plavix, Metoprolol and Ezetimibe Hypothyroidism continue Levothyroxine DVT PPx Lovenox The patient needs overnight hospital stay for IV pain medication as his pain is not well controlled. He will likely need placement at SNF\acute rehab per PT recommendations. pending final cultures and antibiotics sensitivity. Quality Stroke Does the patient have a stroke diagnosis?: No VTE Prior VTE?: No VTE Risk Level:: Medical - moderate - high VTE Device Contraindication: Treatment Not Indicated VTE Drug Contraindication: N/A - Med Ordered
--- NOTE | 2024-01-21 10:44 | MHC.CM.PN ---
PT REPORTS HE LIVES WITH HIS AND DAUGHTER WHO CAN ASSIST PRN HE REPORTS HE USES A WALKER HE SAYS HE HAS THE PAPERWORK AND WILL COMPLETE A HCP PCP: [facility] NOTICE DELIVERED DCP: HOME VIA PRIVATE TRANSPORT
[2024-01-21 15:02] VITALS: BP 146/82; PULSE 68; RESP 18; TEMP 36.6; O2SAT 96
[2024-01-21 23:05] VITALS: BP 155/75; PULSE 72; RESP 18; TEMP 36.7; O2SAT 94
[2024-01-22 07:04] VITALS: BP 149/78; PULSE 76; RESP 16; TEMP 36.3; O2SAT 94
[2024-01-22] MEDS: Ibuprofen 400 MG TABLET PO ×3 (08:02→17:45)
[2024-01-22] MEDS: Cyclobenzaprine HCl 5 MG TABLET PO ×3 (08:02→20:18)
[2024-01-22] MEDS: Acetaminophen 325 MG TABLET 975 MG PO ×3 (08:02→17:46)
[2024-01-22] MEDS: 0.9 % Sodium Chloride Flush 3 ML SYRINGE IVFLUSH ×3 (08:10→23:26)
[2024-01-22] MEDS: Lactulose 20 GM/30 ML SOLUTION PO ×2 (09:38→15:31)
[2024-01-22] MEDS: Enoxaparin Sodium 40 MG/0.4 ML SYRINGE SUBCUT (09:39)
--- NOTE | 2024-01-22 10:00 | HE.PHANOTE ---
CHANGE LEVOFLOXACIN FROM IV TO PO DOSING PER PROTOCOL AFTER DISCUSSING WITH DR BARFIELD
--- NOTE | 2024-01-22 12:32 | P.PNIM_ITS ---
Subjective Subjective Date of Service: 01/22/24 Interval History: still reporting pain in groin and mid thigh negative cultures no other reported events Review of Systems Review of Systems: Yes all other systems are reviewed and are negative Physical Exam 2 Vital Signs: Vital Signs: Last Vital Signs Temp 97.3 F 01/22/24 07:04 Pulse 76 01/22/24 07:04 Resp 16 01/22/24 07:04 BP 149/78 H 01/22/24 07:04 Pulse Ox 94 01/22/24 07:04 O2 Del Method Room Air 01/22/24 07:04 BMI result Body Mass Index 26.9 Const: Other: Constitutional : Awake, interactive, in distress for pain Cardiovascular : RRR, no JVP, no lower extremity edema Respiratory : good bilateral air entry, no crackles Gastrointestinal: soft, lax, Normal bowel sounds Skin : Warm, Dry Extremities: Right inner thigh mild tenderness Urinary: No erythema, warmth, swelling or tenderness upon palpation Neurological : Alert & oriented x3, No focal deficit Objective Data Active Medications Acetaminophen (Acetaminophen 325 Mg Tablet) 975 mg PO TIDWM [facility] Last Admin: 01/22/24 12:13 Dose: 975 mg Documented By: CLINTON Acetaminophen (Acetaminophen 325 Mg Tablet) 650 mg PO Q6H PRN PRN Reason: Pain, Mild (Pain Scale 1-3) Al Hydroxide/Mg Hydroxide (Magnesium Hydrox/Alum Hydrox 30 Ml Oral.Susp) 30 ml PO Q4H PRN PRN Reason: Heartburn/Nausea Cyclobenzaprine HCl (Cyclobenzaprine Hcl 5 Mg Tablet) 5 mg PO TID [facility] Last Admin: 01/22/24 08:02 Dose: 5 mg Documented By: CLINTON Enoxaparin Sodium (Enoxaparin Sodium 40 Mg/0.4 Ml Syringe) 40 mg SUBCUT Q24H [facility] Last Admin: 01/22/24 09:39 Dose: 40 mg Documented By: CLINTON Ibuprofen (Ibuprofen 400 Mg Tablet) 400 mg PO TIDWM [facility] Last Admin: 01/22/24 12:13 Dose: 400 mg Documented By: CLINTON Lactulose (Lactulose 20 Gm/30 Ml Solution) 20 gm PO TID [facility] Last Admin: 01/22/24 09:38 Dose: 20 gm Documented By: CLINTON Levofloxacin (Levofloxacin 500 Mg Tablet) 500 mg PO Q24H [facility] Morphine Sulfate (Morphine Sulfate 4 Mg/Ml Cartridge) 2 mg IVPUSH Q4H PRN; Protocol PRN Reason: Pain, Severe (Pain Scale 7-10) Last Admin: 01/21/24 05:57 Dose: 2 mg Documented By: KIRT Ondansetron HCl (Ondansetron Hcl 4 Mg/2 Ml Vial) 4 mg IVPUSH Q8H PRN PRN Reason: Nausea and Vomiting Sodium Chloride (0.9 % Sodium Chloride Flush 3 Ml Syringe) 3 ml IVFLUSH QSHIFT [facility] Last Admin: 01/22/24 08:10 Dose: 3 ml Documented By: AMANDAC Labs 01/19/24 13:28 01/21/24 05:45 Microbiology Microbiology Results: Microbiology 01/19/24 Unknown Urine Culture - Final Urine clean catch - Urine jackson top Assessment and Plan (1) Physical deconditioning: Status: Acute (2) Epididymitis, left: Status: Acute (3) Leg pain, right: Status: Acute Plan A 73 years old male with PMH of Hypothyroid, HLD, HTN who presents to ED with 1 week of right sided groin and thigh pain. He denies fever, chills, injury. Acute left thigh\groin pain 2/2 acute Epididymitis or radiated from Hip? could be referred pain from testicles , hip joint osteoarthritis US scrotum showing epididymitis Pending cultures Continue Levaquin for now ATC Tylenol and Ibuprofen Morphine PRN for pain Orthopedic consult for eval Physical deconditioning PT rec acute rehab, to continue to follow. Hx CAD? Plavix, Metoprolol and Ezetimibe Hypothyroidism continue Levothyroxine DVT PPx Lovenox The patient needs overnight hospital stay for IV pain medication as his pain is not well controlled. He will likely need placement at SNF\acute rehab per PT recommendations. pending final cultures and antibiotics sensitivity. Quality Stroke Does the patient have a stroke diagnosis?: No VTE Prior VTE?: No VTE Risk Level:: Medical - moderate - high VTE Device Contraindication: Treatment Not Indicated VTE Drug Contraindication: N/A - Med Ordered
[2024-01-22 15:09] VITALS: BP 119/76; PULSE 74; RESP 18; TEMP 36.7; O2SAT 96
[2024-01-22] MEDS: levoFLOXacin 500 MG TABLET PO (20:19)
[2024-01-22 23:55] VITALS: BP 177/94; PULSE 75; RESP 20; TEMP 36.3; O2SAT 95
[2024-01-23 01:30] VITALS: BP 124/66
[2024-01-23 07:08] VITALS: BP 130/73; PULSE 62; RESP 18; TEMP 36; O2SAT 92
[2024-01-23] MEDS: Enoxaparin Sodium 40 MG/0.4 ML SYRINGE SUBCUT (07:24)
[2024-01-23] MEDS: Acetaminophen 325 MG TABLET 975 MG PO ×3 (07:24→16:33)
[2024-01-23] MEDS: Cyclobenzaprine HCl 5 MG TABLET PO ×3 (07:25→19:45)
[2024-01-23] MEDS: Ibuprofen 400 MG TABLET PO ×3 (07:25→16:32)
[2024-01-23] MEDS: Lactulose 20 GM/30 ML SOLUTION PO (07:25)
[2024-01-23] MEDS: 0.9 % Sodium Chloride Flush 3 ML SYRINGE IVFLUSH ×3 (07:25→19:44)
[2024-01-23] MEDS: oxyCODONE HCl Immed Release 5 MG TABLET PO ×2 (08:22→13:57)
--- NOTE | 2024-01-23 08:28 | PM.EVENT ---
Event Note Date of Service: 01/23/24 Event Note: xrays negative for acute fracture or dislocation -mild OA -nothing to be done from orthopedic surgery standpoint. Time Spent With Patient Time: Total time managing care of this patient today ____ minutes.
--- NOTE | 2024-01-23 09:24 | MHC.CM.PN ---
Addendum entered by Lucy Burger RN 01/23/24 10:52: [facility] OFFERING BED FOR TOMORROW 01/24/24, CM WILL CONT TO FOLLOW. Original Note: EMR REVIEWED, CM MET W/PT TO DISCUSS DISPO ACUTE REHABS ARE DENYING PT BASED ON NOT HAVING AN ACUTE REHAB DX, PT REPORTS [facility] WILL BE PREFERRED HE LIVES IN [place] AND THAT IS NOT TOO FAR, REFERRAL PLACED, CM WILL CONT TO FOLLOW DC NEEDS.
--- NOTE | 2024-01-23 09:54 | P.PNIM_ITS ---
Subjective Subjective Date of Service: 01/23/24 Interval History: improved overall but still reporting pain in groin and mid thigh negative cultures no other reported events Review of Systems Review of Systems: Yes all other systems are reviewed and are negative Physical Exam 2 Vital Signs: Vital Signs: Last Vital Signs Temp 96.8 F 01/23/24 07:08 Pulse 62 01/23/24 07:08 Resp 18 01/23/24 07:08 BP 130/73 01/23/24 07:08 Pulse Ox 92 01/23/24 07:08 O2 Del Method Room Air 01/23/24 07:08 BMI result Body Mass Index 26.9 Const: Other: Constitutional : Awake, interactive, in distress for pain Cardiovascular : RRR, no JVP, no lower extremity edema Respiratory : good bilateral air entry, no crackles Gastrointestinal: soft, lax, Normal bowel sounds Skin : Warm, Dry Extremities: Right inner thigh mild tenderness Urinary: No erythema, warmth, swelling or tenderness upon palpation Neurological : Alert & oriented x3, No focal deficit Objective Data Active Medications Acetaminophen (Acetaminophen 325 Mg Tablet) 975 mg PO TIDWM [facility] Last Admin: 01/23/24 07:24 Dose: 975 mg Documented By: HERMINIO Acetaminophen (Acetaminophen 325 Mg Tablet) 650 mg PO Q6H PRN PRN Reason: Pain, Mild (Pain Scale 1-3) Al Hydroxide/Mg Hydroxide (Magnesium Hydrox/Alum Hydrox 30 Ml Oral.Susp) 30 ml PO Q4H PRN PRN Reason: Heartburn/Nausea Cyclobenzaprine HCl (Cyclobenzaprine Hcl 5 Mg Tablet) 5 mg PO TID [facility] Last Admin: 01/23/24 07:25 Dose: 5 mg Documented By: HERMINIO Enoxaparin Sodium (Enoxaparin Sodium 40 Mg/0.4 Ml Syringe) 40 mg SUBCUT Q24H [facility] Last Admin: 01/23/24 07:24 Dose: 40 mg Documented By: HERMINIO Ibuprofen (Ibuprofen 400 Mg Tablet) 400 mg PO TIDWM [facility] Last Admin: 01/23/24 07:25 Dose: 400 mg Documented By: HERMINIO Lactulose (Lactulose 20 Gm/30 Ml Solution) 20 gm PO TID [facility] Last Admin: 01/23/24 07:25 Dose: 20 gm Documented By: HERMINIO Levofloxacin (Levofloxacin 500 Mg Tablet) 500 mg PO Q24H [facility] Last Admin: 01/22/24 20:19 Dose: 500 mg Documented By: CALDERON Morphine Sulfate (Morphine Sulfate 4 Mg/Ml Cartridge) 2 mg IVPUSH Q4H PRN; Protocol PRN Reason: Pain, Severe (Pain Scale 7-10) Last Admin: 01/21/24 05:57 Dose: 2 mg Documented By: KIRT Ondansetron HCl (Ondansetron Hcl 4 Mg/2 Ml Vial) 4 mg IVPUSH Q8H PRN PRN Reason: Nausea and Vomiting Oxycodone HCl (Oxycodone Hcl Immed Release 5 Mg Tablet) 5 mg PO Q6H PRN PRN Reason: Pain, Severe (Pain Scale 7-10) Last Admin: 01/23/24 08:22 Dose: 5 mg Documented By: HERMINIO Sodium Chloride (0.9 % Sodium Chloride Flush 3 Ml Syringe) [facility] Admin: 01/23/24 07:25 Dose: 3 ml Documented By: HERMINIO Labs 01/19/24 13:28 01/21/24 05:45 Assessment and Plan (1) Physical deconditioning: Status: Acute (2) Epididymitis, left: Status: Acute (3) Leg pain, right: Status: Acute Plan A 73 years old male with PMH of Hypothyroid, HLD, HTN who presents to ED with 1 week of right sided groin and thigh pain. He denies fever, chills, injury. Acute left thigh\groin pain 2/2 acute Epididymitis or radiated from Hip? could be referred pain from testicles , hip joint osteoarthritis US scrotum showing epididymitis negative urine culture Continue Levaquin for now ATC Tylenol and Ibuprofen Morphine PRN for pain Orthopedic consult for eval Physical deconditioning PT rec acute rehab\STR , to continue to follow. Hx CAD? Plavix, Metoprolol and Ezetimibe Hypothyroidism continue Levothyroxine DVT PPx Lovenox The patient needs overnight hospital stay for pain control and physical therapy as his pain is not well controlled. He will likely need placement at SNF\acute rehab per PT recommendations. Quality Stroke Does the patient have a stroke diagnosis?: No VTE Prior VTE?: No VTE Risk Level:: Medical - moderate - high VTE Device Contraindication: Treatment Not Indicated VTE Drug Contraindication: N/A - Med Ordered
[2024-01-23 15:08] VITALS: BP 125/77; PULSE 76; RESP 18; TEMP 36.2; O2SAT 97
[2024-01-23 19:13] VITALS: BP 128/79; PULSE 77; RESP 18; TEMP 36.3; O2SAT 98
[2024-01-23] MEDS: levoFLOXacin 500 MG TABLET PO (19:45)
[2024-01-23 23:26] VITALS: BP 135/79; PULSE 63; RESP 18; TEMP 36.2; O2SAT 97
[2024-01-24 03:24] VITALS: BP 137/68; PULSE 69; RESP 18; TEMP 36.2; O2SAT 97
[2024-01-24] MEDS: Ibuprofen 400 MG TABLET PO ×2 (07:18→11:42)
[2024-01-24] MEDS: Acetaminophen 325 MG TABLET 975 MG PO ×2 (07:18→11:42)
[2024-01-24] MEDS: Cyclobenzaprine HCl 5 MG TABLET PO (07:19)
[2024-01-24] MEDS: 0.9 % Sodium Chloride Flush 3 ML SYRINGE IVFLUSH (07:19)
[2024-01-24 07:46] VITALS: BP 134/83; PULSE 75; RESP 16; TEMP 36.2; O2SAT 94
--- NOTE | 2024-01-24 10:23 | PM.DS ---
DS: Providers Provider Date of Service: 01/24/24 Date of admission: 01/21/24 11:00 Primary care physician: Ulises Cedeño MD Consults: 01/22/24 12:26 Consult to Orthopedics Routine Consulting Provider: [facility] Reason for consultation: Severe Left thigh pain, radiated from hip ? DS: Diagnosis Discharge Diagnosis (1) Physical deconditioning: Status: Acute (2) Epididymitis, left: Status: Acute (3) Leg pain, right: Status: Acute DS: Summary Hospital Course Hospital Course: Admission note HPI A 73 years old male with PMH of Hypothyroid, HLD, HTN who presents to ED with 1 week of right sided groin and thigh pain. He denies fever, chills, injury. He reports last week that he chopped wood by the motorized scooter with lots of vibration. the pain is persistent and getting worse interfering with his daily activities as he can not walk safely anymore. The pain radiates to his testicles but no pain or swelling in his scrotum. . No chest pain, palpitations, SOB, nausea, vomiting, diarrhea or urinary symptoms. In ED US scrotum was concerning for possible left sided Epididymitis. received multiple doses of IV and PO pain medications with no relief. Will be admitted for further work up and treatment. Hospital course The patient was admitted for evaluation of acute right thigh secondary to acute left side Epididymitis as the pain likely referred from testicles , US scrotum showed epididymitis . negative urine culture. Treated with Levofloxacin with a plan to continue for total of 2 weeks. Pain was mainly controlled with around the clock Tylenol and Ibuprofen along with Oxycodone PRN. He was evaluated by orthopedic for hip joint osteoarthritis who doesnt think his current pain is a result of hip OA. He was evaluated by PT team who recommended STR , will be dischaged to nursing facility for further therapy. Discharge plan Continue Levaquin as prescribed Tylenol and Ibuprofun as scheduled Pantoprazole for stomach protection Oxycodone as needed for pain Start physical therapy Time Attestation Discharge Coordination Time (in mins): 38 Quality: Safe Use of Opioids Does Pt have an Active Cancer Diagnosis on the Problem List?: No Quality: Stroke Does the patient have a stroke diagnosis?: No Physical Exam Vital Signs: Vital Signs: Last Vital Signs Temp 97.1 F 01/24/24 07:46 Pulse 75 06/04/24 07:46 Resp 16 01/24/24 07:46 BP 134/83 01/24/24 07:46 Pulse Ox 94 01/24/24 07:46 O2 Del Method Room Air 01/24/24 07:46 BMI result Body Mass Index 26.9 Const: Other: Constitutional : Awake, interactive, not in distress Cardiovascular : RRR, no JVP, no lower extremity edema Respiratory : good bilateral air entry, no crackles Gastrointestinal: soft, lax, Normal bowel sounds Skin : Warm, Dry Extremities: Right inner thigh mild tenderness Urinary: No erythema, warmth, swelling or tenderness upon palpation Neurological : Alert & oriented x3, No focal deficit DS: Data Imaging Chest x-ray: Radiologist's impression: ITS Impressions Duplex Scan Lower Extremity Artery 01/19/24 14:11 IMPRESSION: Normal multiphasic flow throughout the right lower extremity. No sonographic evidence of right lower extremity arterial disease. Scrotum Ultrasound 01/19/24 14:24 IMPRESSION: 1. Normal right and left testicle. 2. Heterogeneous density and mild thickening of the body and tail of left epididymis with increased vascular flow on color Doppler consistent with epididymitis. 3. Small bilateral hydrocele. Scrotum Ultrasound 01/19/24 14:24 IMPRESSION: 1. Normal right and left testicle. 2. Heterogeneous density and mild thickening of the body and tail of left epididymis with increased vascular flow on color Doppler consistent with epididymitis. 3. Small bilateral hydrocele. Lumbar Spine CT 01/19/24 18:03 IMPRESSION: 1. No acute abnormality. 2. Degenerative spondylosis of lumbar spine. Bulging of the annular fibers at L3-L4 and L4-L5. Moderate central canal stenosis at L3-L4 and mild to moderate central canal stenosis at L4-L5. Hip/Pelvis X-Ray 01/19/24 18:20 IMPRESSION: 1. No acute visible fracture or dislocation. 2. 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 3. Degenerative changes of the lumbosacral spine. Knee X-Ray 01/19/24 18:20 IMPRESSION: 1. No acute visible fracture or dislocation. 2. Multi joint arthritic changes. 3. Trace knee joint effusion. Pelvis X-Ray 01/22/24 16:33 IMPRESSION: 1. No acute fracture or dislocation. 2. Mild bilateral hip arthrosis. Discharge Plan Discharge Anticipated Discharge Date/Time: 01/24/24 09:53 Patient Disposition: Xfer SNF Discharge Diagnosis: Epididymitis leg pain Referrals: Ulises Cedeño MD [Primary Care Provider] - 1 Week Discharge Medications: New acetaminophen 325 mg Tablet 975 mg PO TIDWM 7 Days Qty: 63 0RF ibuprofen 400 mg Tablet 400 mg PO TIDWM 7 Days Qty: 21 0RF oxycodone 5 mg Tablet 5 mg PO Q6H PRN (Reason: Pain, Severe (Pain Scale 7-10)) Qty: 20 0RF Rx Instructions: Partial Fill upon patient request. pantoprazole 20 mg tablet,delayed release (DR/EC) 20 mg PO DAILY Qty: 90 0RF levofloxacin 500 mg Tablet 500 mg PO Q24H Qty: 10 0RF Continued cyanocobalamin (vitamin B-12) 1,000 mcg Tablet 1,000 mcg PO DAILY clopidogrel 75 mg tablet 75 mg PO DAILY levothyroxine 150 mcg tablet 150 mcg PO [id number] Patient Comments: patients says he skips sundays metoprolol succinate 25 mg tablet extended release 24 hr 25 mg PO DAILY ezetimibe 10 mg tablet 10 mg PO DAILY Discharge Orders: Discharge Order (Routine); Ordered 01/24/24 Ordered By: Batsheva Foote Diet: Advance to usual diet Activity on Discharge: As tolerated Stand Alone Forms: Patient Portal Discharge page Print Language: Danish Care Plan Goals: Read below Health Concerns: Read below Plan of Treatment: Read below Assessment: Continue Levaquin as prescribed Tylenol and Ibuprofun as scheduled Pantoprazole for stomach protection Oxycodone as needed for pain Start physical therapy Patient Instructions: Leg Cramps (ED)
[2024-01-24] MEDS: Levothyroxine Sodium 150 MCG TABLET PO (10:26)
--- NOTE | 2024-01-24 10:47 | MHC.CM.PN ---
PT MEDICALLY CLEARED FOR DC TO [facility] FOR STR, [facility] FOR BLS TRANSPORT
--- NOTE | 2024-01-24 10:48 | MHC.CM.PN ---
PT EDUCATED ON AND COMPLETED A HCP NAMING HIS DTR [facility] (C) [phone], ([phone]) [phone] HIS HCA AND NO ALTERNATE CHOSEN AT THIS TIME, COPY UPLOADED TO [facility] AND PLAED IN CHART, PT'S DTR HAS TAKEN HOME EDUCATIONAL HANDOUT, ORIGINAL AND 2 COPIES.
== END 2024-01-24 14:00 | disposition skilled nursing facility (03) | DRG 728 ==
LOC: HO.ED 01-20 06:32 → HO.EDOVER 01-20 09:53 → HO.S3 01-20 15:21
PROVIDERS: Physician Assistant; Physician Assistant Medical; Admitting Provider Student in an Organized Health Care Education/Training Program; Emergency Provider Emergency Medicine; PCP Internal Medicine; Visit Provider Student in an Organized Health Care Education/Training Program
DX: N45.1 Epididymitis (principal); I10 Essential (primary) hypertension; I25.10 Atherosclerotic heart disease of native coronary artery without angina pectoris; E78.5 Hyperlipidemia, unspecified; E03.9 Hypothyroidism, unspecified; Z79.02 Long term (current) use of antithrombotics/antiplatelets; Z79.890 Hormone replacement therapy; Z79.899 Other long term (current) drug therapy
CPT/HCPCS: 36415; 72132; 72170; 73502; 73562; 76870; 80048; 80053; 81001; 82550; 83735; 85025; 85610; 87086; 93926; 93975; 97163; 97166; 97530; 99221; 99285; J1170; J1650; J1885; J1956; J2270; J2405; J3360

== ENCOUNTER → 2024-01-20 09:52 | Outpatient (BNV) | payer MEDICARE, SELFPAY | PROVIDERS: Admitting Provider Student in an Organized Health Care Education/Training Program; Emergency Provider Emergency Medicine; PCP Internal Medicine; Visit Provider Student in an Organized Health Care Education/Training Program | DX: R53.81 Other malaise (principal); N45.1 Epididymitis; M79.604 Pain in right leg | CPT/HCPCS: 99222; 99232; 99239 ==